=== PATIENT | female | born 1950 | race Caucasian/White ===

== ENCOUNTER 2017-08-30 20:06 | Observation (INO) | payer OTHER, MEDICAID ==
[~2017-08-30] VITALS: Ht 167.6 cm; Wt 79.8 kg
[2017-08-30 20:30] VITALS: Ht 167.6 cm; Wt 79.8 kg
[2017-08-30 22:34] LABS: BASOPHIL % 0.5 % (0-2); PLATELET COUNT 227 x10^3mcL (130-400); RED CELL DISTRIBUTION WIDTH 14.3 % (11.5-14.5)
[2017-08-30 22:57] LABS: CREATININE SERUM 1.6 mg/dL (0.6-1.0); POTASSIUM SERUM 4.7 mmol/L (3.5-5.1)
[2017-08-30 23:18] VITALS: BP 114/70
[2017-08-30 23:51] VITALS: BP 114/70
[2017-08-31 05:36] VITALS: BP 94/63
[2017-08-31 06:01] LABS: CALCIUM 8.7 mg/dL (8.5-10.1); CARBON DIOXIDE 26.5 mmol/L (21-32); CREATININE SERUM 1.2 mg/dL (0.6-1.0); POTASSIUM SERUM 4.6 mmol/L (3.5-5.1)
[2017-08-31 12:39] VITALS: BP 101/62
[2017-08-31 13:42] VITALS: BP 101/62
== END 2017-08-31 14:55 | disposition home or self-care (01) | DRG 563 ==
LOC: ED 20:06 → MU 22:30 → DU 22:30 → MU 22:33 → ED 22:33 → DU 22:33 → MU 23:07 → DU 23:07 → MU 08-31 07:12
PROVIDERS: Emergency Medicine; Internal Medicine Pulmonary Disease
DX: S82.042A Displaced comminuted fracture of left patella, initial encounter for closed fracture (principal); W01.0XXA Fall on same level from slipping, tripping and stumbling without subsequent striking against object, initial encounter; Y93.E3 Activity, vacuuming; Y92.009 Unspecified place in unspecified non-institutional (private) residence as the place of occurrence of the external cause
CPT/HCPCS: G0378; J1650; J1885; J2250; J2270; J2405; J3010; J7030; Q0092

== ENCOUNTER 2019-10-30 21:15 | Emergency (ER) | payer OTHER ==
[~2019-10-30] VITALS: Ht 167.6 cm; Wt 78.9 kg
[2019-10-30 21:32] VITALS: Ht 167.6 cm; Wt 78.9 kg
[2019-10-30 23:44] VITALS: BP 137/75
== END 2019-10-30 23:44 | disposition home or self-care (01) ==
LOC: ED 21:15
DX: S63.8X1A Sprain of other part of right wrist and hand, initial encounter (principal); M19.90 Unspecified osteoarthritis, unspecified site; F17.210 Nicotine dependence, cigarettes, uncomplicated; I10 Essential (primary) hypertension; Z71.6 Tobacco abuse counseling; Z98.890 Other specified postprocedural states; Z98.51 Tubal ligation status; W22.8XXA Striking against or struck by other objects, initial encounter; Y93.89 Activity, other specified; Y92.89 Other specified places as the place of occurrence of the external cause; Y99.8 Other external cause status
CPT/HCPCS: 99406; J1885; Q0092